=== PATIENT | male | born 1985 | race Caucasian/White ===

== ENCOUNTER 2020-08-21 18:51 | Emergency (ER) | payer MEDICAID, SELFPAY ==
--- NOTE | 2020-08-21 | ECG_ITS ---
Test Reason : CHEST PAIN Blood Pressure : / mmHG Vent. Rate : 087 BPM Atrial Rate : 087 BPM P-R Int : 170 ms QRS Dur : 096 ms QT Int : 442 ms P-R-T Axes : 066 -11 064 degrees QTc Int : 531 ms Normal sinus rhythm RSR' or QR pattern in V1 suggests right ventricular conduction delay Low voltage QRS T wave abnormality, consider anterior ischemia Abnormal ECG No previous ECGs available Referred By: Generic ED Physician Electronically Signed By:TAMMY MUÑIZ MD
[2020-08-21 19:59] VITALS: BP 114/73; PULSE 74; RESP 16; TEMP 37.3; O2SAT 97; BMI 25.8
--- NOTE | 2020-08-21 20:53 | XR_ITS ---
EXAMINATION: XR CHEST CLINICAL INFORMATION: 34-year-old male patient with chest pain. COMPARISON: Last chest x-ray done 01/13/2013 prior to the patient's sternotomy. TECHNIQUE: AP portable erect view of the chest was obtained. The time of examination was 8:56 PM. FINDINGS: The heart is normal in size. Epicardial pacing wires are in place. These wires are disconnected. There is no evidence of vascular congestion or edema. No definite pleural effusion. Plate like areas of atelectasis are seen in both lower lobes. Sternotomy wires and plates are intact. IMPRESSION: No signs of cardiac decompensation.
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
[2020-08-21 21:35] VITALS: PULSE 75
[2020-08-21 21:39] LABS: MANUAL DIFF FLAG NO
[2020-08-21 21:41] LABS: Basophils Percent Auto 0.2 % (0-2); Eosinophils Percent Auto 0.6 % (0-4); Hematocrit 43.3 % (42-52); Hemoglobin 13.4 g/dl (14.0-18.0); Imm Gran Abs Auto 0.04 X10*3/uL (0.00-0.03); Imm Gran Pct Auto 0.8 % (0.0-0.4); Lymphocytes Absolute Auto 1.4 X10*3/uL (1.2-4.9); Lymphocytes Percent Auto 26.6 % (20-40); Mean Corpuscular HGB Conc 30.9 g/dl (31.0-36.0); Mean Corpuscular Hemoglobin 25.9 pg (27.0-33.0); Mean Corpuscular Volume 83.8 fL (80-98); Mean Platelet Volume 9.8 fL (9.4-12.4); Monocytes Absolute Auto 0.3 X10*3/uL (0.1-1.2); Monocytes Percent Auto 4.7 % (2-11); Neutrophils Absolute Auto 3.6 X10*3/uL (2.0-8.3); Neutrophils Percent Auto 67.1 % (45-73); Platelet Count 243 X10*3/uL (160-400); Red Blood Count 5.17 X10*6/uL (4.60-5.80); Red Cell Distribution Width 16.9 % (11.0-16.0); White Blood Count 5.3 X10*3/uL (4.8-10.8)
[2020-08-21 21:44] LABS: Glucose Urine UA NEG (NEG); Leukocyte Esterase Urine NEG (NEG); Nitrite Urine NEG (NEG); Urine Blood 1+ (NEG); Urine Ketones NEG (NEG); Urine Protein NEG (NEG-TRACE)
[2020-08-21 21:45] LABS: Appearance Urine CLEAR; Color Urine YELLOW
[2020-08-21 21:52] LABS: RBC Urine 0-2 /HPF (0); Squamous Epithelial Cell Urine 1+ /LPF; WBC Urine 0 /HPF (0-4)
[2020-08-21 22:00] VITALS: BP 134/78; PULSE 90; RESP 16; TEMP 37.1; O2SAT 96
[2020-08-21 22:23] LABS: Alanine Aminotransferase 60 U/L (0-40); Albumin Level 4.1 g/dL (3.5-5.0); Alkaline Phosphatase 130 U/L (39-117); Anion Gap 14 (12-20); Aspartate Amino Transferase 41 U/L (5-37); Bilirubin Total 0.3 mg/dL (0.0-1.0); Blood Urea Nitrogen 21 mg/dL (9-16); Calcium 9.2 mg/dL (8.4-10.2); Carbon Dioxide 25 mmol/L (22-29); Chloride 103 mmol/L (96-108); Creatinine Clr Calc Pharmacy 69.6; Estimated Glomerular Filt Rate 59; Glucose Random 108 mg/dL (60-115); Potassium 4.8 mmol/l (3.3-5.1); Sodium 137 mmol/L (135-145); Total Protein 8.3 g/dL (6.5-8.0)
[2020-08-21 22:41] LABS: Magnesium 1.9 mg/dL (1.6-2.6)
== END 2020-08-21 23:53 | disposition home or self-care (01) ==
PROVIDERS: Emergency Provider Student in an Organized Health Care Education/Training Program
DX: M79.10 Myalgia, unspecified site (principal); Z86.19 Personal history of other infectious and parasitic diseases
CPT/HCPCS: 36415; 71045; 80053; 81001; 83735; 85025; 93005; 99283; 99284